=== PATIENT | male | born 1990 | race Caucasian/White ===

== ENCOUNTER 2017-01-03 10:45 | Emergency (ER) | payer OTHER ==
[2017-01-03 10:50] VITALS: BP 153/82; PULSE 88; TEMP 98.3; BMI 32.5
--- NOTE | 2017-01-03 12:14 | PDOC ---
History of Present Illness - General Chief Complaint: Injury Stated Complaint: LT LEG PAIN Time Seen by Provider: 01/03/17 11:17 History Source: Patient Exam Limitations: No Limitations - History of Present Illness Initial Comments: 01/03/17 18:57 26 yr male states at work stepped in pothole and twisted left ankle today. no obvious deformity or swelling. Occurred: reports: this morning Past History - Past Medical History Allergies/Adverse Reactions: Allergies Allergy/AdvReac Type Severity Reaction Status Date / Time No Known Allergies Allergy Verified 01/03/17 10:46 Home Medications: Ambulatory Orders NK [No Known Home Medication] 01/03/17 Other medical history: none - Psycho/Social/Smoking Cessation Hx Anxiety: No Suicidal Ideation: No Smoking History: Never smoked Have you smoked in the past 12 months: No Information on smoking cessation initiated: No Hx Alcohol Use: No Drug/Substance Use Hx: No Substance Use Type: None Trauma Specific PMHX - Complaint Specific PMHX Arthritis: No Back Injury: No Neck Injury: No Hx Sacro Iliac Joint Dysfunction: No Review of Systems - Review of Systems Able to Perform ROS?: Yes Is the patient limited Kiswahili proficient: No Constitutional: No: Symptoms Reported Musculoskeletal: Yes: Symptoms Reported, See HPI *Physical Exam - Vital Signs Last Vital Signs Temp Pulse Resp BP Pulse Ox 98.3 F 88 18 153/82 100 01/03/17 10:46 01/03/17 10:46 01/03/17 10:46 01/03/17 10:46 01/03/17 10:46 - Physical Exam General Appearance: Yes: Nourished, Appropriately Dressed HEENT: positive: EOMI, LOVE Musculoskeletal: positive: Normal Inspection Extremity: positive: Normal Capillary Refill, Normal Inspection, Normal Range of Motion, Tender (medial and lateral TTP maleolus). negative: Swelling Procedures - Splinting Josiah Bandage: 4" (left ankle , crutches) ED Treatment Course - RADIOLOGY Radiology Studies Ordered: Category Date Time Status ANKLE & FOOT-LEFT* [RAD] Stat Radiology 01/03/17 11:31 Completed Medical Decision Making - Medical Decision Making 01/03/17 18:59 cc: twisted left ankle no deformity or swelling pt refused pain meds states "it isnt that bad" will xray to r/o fracture 01/03/17 18:59 pt refused crutches, states he is able to weight bear will refer to ortho for follow up pt understands the dc inst all questions asked and answered *DC/Admit/Observation/Transfer Diagnosis at time of Disposition: Ankle sprain Qualifiers: Encounter type: initial encounter Involved ligament of ankle: other ligament Laterality: left Qualified Code(s): S93.492A - Sprain of other ligament of left ankle, initial encounter - Discharge Dispostion Disposition: HOME Condition at time of disposition: Good - Referrals Referrals: Javan Rudolph MD [Primary Care Provider] - Joe Rodriguez MD [Staff Physician] - - Patient Instructions Additional Instructions: elevate and apply ice every 2-3hrs for 20 minutes take motrin as needed for pain 400-600mg every 6hrs (over the counter) use the josiah wrap while awake remove to sleep and bathe follow with if pain worsens or continues - Post Discharge Activity Work/School Note: Back to Work
== END 2017-01-03 12:21 | disposition home or self-care (01) ==
LOC: JERFT 10:45
DX: S93.492A Sprain of other ligament of left ankle, initial encounter (principal); X50.1XXA Overexertion from prolonged static or awkward postures, initial encounter; Y93.01 Activity, walking, marching and hiking; Y92.414 Local residential or business street as the place of occurrence of the external cause; Y99.8 Other external cause status
CPT/HCPCS: 73610-TC-LT; 73630-TC-LT; 99281-25